=== PATIENT | male | born 1955 | race Hispanic/Latino ===

== ENCOUNTER → 2017-06-07 | Outpatient (CLI) | payer OTHER ==
--- NOTE | 2017-06-07 12:51 | Diagnostic Imaging Report ---
PROCEDURE:TESTICULAR ULTRASOUND COMPARISON:None. INDICATIONS:Small pimple on testicle. According to patient, no history of pain TECHNIQUE: Noriega-scale and color doppler images of the testicles and scrotal contents were obtained. Duplex imaging with spectral waveform analysis was performed of the testicular arteries and veins. FINDINGS: RIGHT SCROTUM: Testicle: 4.8 x 2.3 x 3.3 cm. Normal echogenicity. Normal vascularity. No focal lesions or microcalcifications. Epididymal head: 1.1 x 0.8 x 0.6 cm. No focal lesions. Normal vascularity. Normal echogenicity. Hydrocele: Small Varicocele: None LEFT SCROTUM: Testicle: 4.5 x 2.2 x 3.6 cm. Normal echogenicity. Normal vascularity. No focal lesions. Epididymal head: 1.2 x 0.5 x 0.5 cm. There are 2 cystic anechoic lesions in the epididymal head, which measure 0.7 x 0.4 x 0.8 cm and 0.6 x 0.6 x 0.8 cm. Hydrocele: Small, with a small amount of debris. Varicocele: Small There is normal bilateral arterial and venous flow on color Doppler. Overlying skin is unremarkable. No evidence of inguinal hernia. CONCLUSION: 1. Normal bilateral testicular size and echogenicity. No focal lesions. 2. 2 left epididymal head cysts versus spermatoceles. 3. Small bilateral hydroceles, the left one is minimally complex and contains a small amount of debris. 4. Small left varicocele. Micheal Pleitez M.D. Dictated by: Micheal Pleitez M.D. on 06/07/2017 at 12:51 Electronically approved by: Micheal Pleitez M.D. on 06/07/2017 at 12:51
--- NOTE | 2017-06-07 12:51 | Diagnostic Imaging Report ---
PROCEDURE:TESTICULAR DOPPLER ULTRASOUND COMPARISON:None. INDICATIONS:PAIN IN TESTES CONCLUSION: Please see previously dictated report under testicular ultrasound performed same date. Micheal Pleitez M.D. Dictated by: Micheal Pleitez M.D. on 06/07/2017 at 12:52 Electronically approved by: Micheal Pleitez M.D. on 06/07/2017 at 12:52
== END ==
LOC: US 11:13
PROVIDERS: ATTEND Urology
DX: G89.29 Other chronic pain (principal); N50.812 Left testicular pain; N50.811 Right testicular pain
CPT/HCPCS: 76870; 93976